=== PATIENT | female | born 1950 | race Caucasian/White ===

== ENCOUNTER → 2017-12-23 | Outpatient (CLI) | payer MEDICARE ==
--- NOTE | 2017-12-23 10:16 | Diagnostic Imaging Report ---
PROCEDURE: CT ABDOMEN AND PELVIS WITHOUT CONTRAST TECHNIQUE: The abdomen and pelvis were scanned utilizing a multidetector helical scanner from the diaphragm to the lesser trochanter without IV or oral contrast material per renal stone protocol. Coronal and sagittal multiplanar reformations were obtained. DLP: 374.95 COMPARISON: None. INDICATIONS: CALCULUS OF THE KIDNEY FINDINGS: ABSENCE OF INTRAVENOUS CONTRAST DECREASES SENSITIVITY FOR DETECTION OF FOCAL LESIONS AND VASCULAR PATHOLOGY. LOWER THORAX: Calcified granuloma in the right lower lobe. HEPATOBILIARY: No focal hepatic lesions. No biliary ductal dilatation. SPLEEN: No splenomegaly. PANCREAS: No focal masses or ductal dilatation. ADRENALS: No adrenal nodules. KIDNEYS/URETERS: No hydronephrosis or solid mass lesions. There is a contour abnormality of the left upper pole posteriorly that likely represents a small cyst. There are at least 8 or 9 stones on the right side with the largest present measuring 7.5 mm within the upper pole. There are no stones on the left side. PELVIC ORGANS/BLADDER: Unremarkable appearing bladder or uterus. Multiple calcified pelvic phleboliths. PERITONEUM / RETROPERITONEUM: No free air or fluid. LYMPH NODES: No lymphadenopathy. VESSELS: Unremarkable. GI TRACT: No distention or wall thickening. There are scattered diverticula present without evidence of diverticulitis. BONES AND SOFT TISSUES: Compression fracture of T12. Fat containing umbilical hernia. IMPRESSION: 1. Right renal lithiasis. 2. Diverticulosis without evidence of diverticulitis. Jt Pollard D.O. Dictated by: Jt Pollard D.O. on 12/23/2017 at 10:20 Electronically approved by: Jt Pollard D.O. on 12/23/2017 at 10:20
== END ==
LOC: EDBD 07:36 → CT 07:36
PROVIDERS: ATTEND Urology
DX: N20.0 Calculus of kidney (principal)
CPT/HCPCS: 74176

== ENCOUNTER → 2018-02-14 | Day surgery (SDC) | payer MEDICARE ==
[2018-02-13 12:35] LABS: BASOPHILS # (AUTO) 0.1 (0.0-0.1); BASOPHILS % 0.7 % (0.0-1.0); HEMATOCRIT 42.1 % (34.2-44.1); HEMOGLOBIN 13.8 g/dL (12.0-16.0); LYMPHOCYTES # (AUTO) 1.8 (1.0-3.2); LYMPHOCYTES % 25.8 % (18.0-39.1); MEAN CORPUSCULAR HEMOGLOBIN 29.1 pg (28-32); MEAN CORPUSCULAR HGB CONC 32.8 g/dL (31-35); MEAN CORPUSCULAR VOLUME 88.8 fL (81-99); MONOCYTES # (AUTO) 0.4 (0.2-0.8); MONOCYTES % 6.3 % (4.4-11.3); NEUTROPHILS # (AUTO) 4.6 (2.1-6.9); NEUTROPHILS % 67.1 % (38.7-80.0); PLATELET COUNT 220 x10e3/uL (140-360); RED BLOOD COUNT 4.74 x10e6/uL (3.6-5.1); RED CELL DISTRIBUTION WIDTH 13.2 % (11.7-14.4)
--- NOTE | 2018-02-13 15:14 | Diagnostic Imaging Report ---
Frontal and lateral views of the chest. HISTORY: Stone, preadmission, lithotripsy COMPARISON: None available. DISCUSSION: Soft tissue attenuation partially limits sensitivity of the exam. Lungs: Low lung volumes result in bibasilar vascular crowding, accentuation of the pulmonary interstitial markings, central pulmonary vasculature, and the cardiac silhouette. Allowing for these limitations, the findings are as follows: No evidence of a consolidative pneumonia or pulmonary alveolar edema. Pleura: No pleural effusion or pneumothorax. Heart and mediastinum: The cardiomediastinal silhouette appears unremarkable. Bones: Focal kyphosis near the thoracal lumbar junction with associated marked anterior wedge compression deformity of a vertebral body. IMPRESSION: 1. Age-indeterminate focal marked anterior wedge compression deformity of a vertebral body near the focal lumbar junction. 2. Otherwise, no acute radiographic abnormality of the chest. Signed by: Dr. Franco Grande D.O., M.M.M. on 02/13/2018 3:11 PM
[~2018-02-14] MED LIST: BIOTIN2500 MCG; CALCIUM; CEFTRIAXONE SOD 1 GM VIAL ONE; DEXAMETHASONE SOD PHOS INJ 4 MG/ML VIAL ONE; FISH OIL/OMEGA 3; GENTAMICIN 80MG/NS 100 ML 100 ML IV ONE; GLUCOSAMINE CH1 EAC5; IOPAMIDOL 200 MG/ML 20 ML VIAL IT ONE; IOPAMIDOL 300MG/ML 50ML INFUS..BTL IV ONE; JUICE PLUS ORCHARD; LIDOCAINE HCL 2% LOCAL INJ 5 ML SDV VIAL INJ ONE; MIDAZOLAM HCL 2 MG/2 ML VIAL ONE; ONDANSETRON HCL INJ 2 MG/ML VIAL ONE; PROPOFOL IV EMULSION 10 MG/ML 20 ML VIAL ONE; SEVOFLURANE INHAL SOLN 250 ML PEN BTL ONE; VITAMIN D3400 UNIT; [UNRECOGNIZED DRUG - OTHER]; [UNRECOGNIZED DRUG - OTHER]
--- NOTE | 2018-02-14 06:41 | Diagnostic Imaging Report ---
ABDOMEN-1VIEW (KUB) Clinical history: Kidney stone on the right side Technique: AP view abdomen Comparison: None Findings: Abdomen: Nonobstructive bowel gas pattern with moderate stool burden. Other: Two stones measuring 8 mm and 4-5 mm overlie the expected right kidney. Question additional punctate right renal stones. Multiple pelvic phleboliths. [place] rightward curvature of the lumbar spine with multilevel degenerative changes. Impression: Right nephrolithiasis. Signed by: Dr Beckie Leija MD on 02/14/2018 6:38 AM
[2018-02-14 09:10] VITALS: BP 123/80
--- OUTSIDE RECORDS SUMMARY | 2018-03-13 06:36 | XMS REPORT ---
Author Author [facility] Address Unknown Phone Unavailable Care Team Providers Care Personal Financial Representative Name Role Phone BOSTON STEARNS Unavailable Unavailable Problems This patient has no known problems. Allergies, Adverse Reactions, Alerts This patient has no known allergies or adverse reactions. Medications This patient has no known medications. Results Test Description Test Time Test Comments Text Results Atomic Results Result Comments ABDOMEN-1VIEW (KUB) 2018-02-14 06:35:00 [place] [address] Patient Name: JEFFRY CARPENTER MR #: [id number] : 1950 Age/Sex: 67/F Req #: [id number] Adm Physician: Ordered by: BOSTON STEARNS MD Report #: [id number] Location: OR Room/Bed: Procedure: [id number] DX/ABDOMEN-1VIEW (KUB) Exam Date: Exam Time: REPORT STATUS: Signed ABDOMEN-1VIEW (KUB) Clinical history: Kidney stone on the right side Technique: AP view abdomen Comparison: None Findings: Abdomen: Nonobstructive bowel gas pattern with moderate stool burden. Other: Two stones measuring 8 mm and 4-5 mm overlie the expected right kidney. Question additional punctate right renal stones. Multiple pelvic phleboliths. [place] rightward curvature of the lumbar spine with multilevel degenerative changes. Impression: Right nephrolithiasis. Signed by: Dr Rivera Leija MD on 02/14/2018 6:38 AM Dictated By: RIVERA LEIJA MD 7 Transcribed By: CRISTIAN on 02/14/18637 COPY TO: BOSTON STEARNS MD CHEST 2 VIEWS 2018-02-13 15:09:00 [place] [address] Patient Name: JEFFRY CARPENTER MR #: [id number] : 1950 Age/Sex: 67/F Req #: [id number] Adm Physician: Ordered by: BOSTON STEARNS MD Report #: [id number] Location: OR Room/Bed: Procedure: [id number] DX/CHEST 2 VIEWS Exam Date: 02/13/18 Exam Time: 1210 REPORT STATUS: Signed Frontal and lateral views of the chest. HISTORY: Stone, preadmission, lithotripsy COMPARISON: None available. DISCUSSION: Soft tissue attenuation partially limits sensitivity of the exam. Lungs: Low lung volumes result in bibasilar vascular crowding, accentuation of the pulmonary interstitial markings, central pulmonary vasculature, and the cardiac silhouette. Allowing for these limitations, the findings are as follows: No evidence of a consolidative pneumonia or pulmonary alveolar edema. Pleura: No pleural effusion or pneumothorax. Heart and mediastinum: The cardiomediastinal silhouette appears unremarkable. Bones: Focal kyphosis near the thoracal lumbar junction with associated marked anterior wedge compression deformity of a vertebral body. IMPRESSION: 1. Age- indeterminate focal marked anterior wedge compression deformity of a vertebral body near the focal lumbar junction. 2. Otherwise, no acute radiographic abnormality of the chest. Signed by: Dr. Gurvinder Grande D.O., M.M.M. on 02/13/2018 3:11 PM Dictated By: GURVINDER GRANDE DO 1511 Transcribed By: CRISTIAN on 02/13/181 COPY TO: BOSTON STEARNS MD CT ABDOMEN/PELVIS WO 2017-12-23 10:20:00 [place] [address] Patient Name: JEFFRY CARPENTER MR #: [id number] : 1950 Age/Sex: 67/F Req #: [id number] Adm Physician: Ordered by: BOSTON STEARNS MD Report #: [id number] Location: CT Room/Bed: Procedure: [id number] CT/CT ABDOMEN/PELVIS WO Exam Date: 12/23/17 Exam Time: 0750 REPORT STATUS: Signed PROCEDURE: CT ABDOMEN AND PELVIS WITHOUT CONTRAST TECHNIQUE: The abdomen and pelvis were scanned utilizing a multidetector helical scanner from the diaphragm to the lesser trochanter without IV or oral contrast material per renal stone protocol. Coronal and sagittal multiplanar reformations were obtained. DLP: 374.95 COMPARISON: None. INDICATIONS: CALCULUS OF THE KIDNEY FINDINGS: ABSENCE OF INTRAVENOUS CONTRAST DECREASES SENSITIVITY FOR DETECTION OF FOCAL LESIONS AND VASCULAR PATHOLOGY. LOWER THORAX: Calcified granuloma in the right lower lobe. HEPATOBILIARY: No focal hepatic lesions. No biliary ductal dilatation. SPLEEN: No splenomegaly. PANCREAS: No focal masses or ductal dilatation. ADRENALS: No adrenal nodules. KIDNEYS/URETERS: No hydronephrosis or solid mass lesions. There is a contour abnormality of the left upper pole posteriorly that likely represents a small cyst. There are at least 8 or 9 stones on the right side with the largest present measuring 7.5 mm within the upper pole. There are no stones on the left side. PELVIC ORGANS/BLADDER: Unremarkable appearing bladder or uterus. Multiple calcified pelvic phleboliths. PERITONEUM / RETROPERITONEUM: No free air or fluid. LYMPH NODES: No lymphadenopathy. VESSELS: Unremarkable. GI TRACT: No distention or wall thickening. There are scattered diverticula present without evidence of diverticulitis. BONES AND SOFT TISSUES: Compression fracture of T12. Fat containing umbilical hernia. IMPRESSION: 1. Right renal lithiasis. 2. Diverticulosis without evidence of diverticulitis. Kemar Pollard D.O. Dictated by: Kemar Pollard D.O. on 12/23/2017 at 10:20 Electronically approved by: Kemar Pollard D.O. on 12/23/2017 at 10:20 Dictated By: KEMAR POLLARD DO 1020 Transcribed By: SEKOU on 12/23/17 1020 COPY TO: BOSTON STEARNS MD
--- NOTE | 2018-04-03 01:21 | Operative Report ---
DATE OF PROCEDURE: February 14, 2018 PREOPERATIVE DIAGNOSES 1. Right nephrolithiasis. 2. Urinary tract infections. 3. Gross hematuria. 4. Mixed-type urinary incontinence. POSTOPERATIVE DIAGNOSES 1. Right nephrolithiasis. 2. Urinary tract infections. 3. Gross hematuria. 4. Mixed-type urinary incontinence. 5. Grade-1 cystocele. 6. Grade-3 rectocele. 7. Atrophic (senile) vaginitis. 8. Urethral hypomobility. OPERATIONS PERFORMED 1. Right-sided extracorporeal shockwave lithotripsy (separate staged procedure performed for the right nephrolithiasis). 2. Cystourethroscopy with bilateral ureteral catheterization and retrograde ureteropyelography (separately procedure performed to evaluate the patient's upper tracts in light of the urinary tract infections and hematuria). 3. Interpretation of retrograde ureteropyelography. 4. Pelvic examination under anesthesia. ANESTHESIA: General. COMPLICATIONS: None. CLINICAL SUMMARY: Nancy Dorado is a 67-year-old woman with the above preoperative diagnoses. She is brought for the above procedures. She is aware of the risks of bleeding, infection, injury to adjacent structures, need for additional procedures, and elected to proceed. The patient has a history of right percutaneous nephrostolithotomy, as well as ESWL procedures, as well as ureteroscopy procedures. OPERATIVE PROCEDURE IN DETAIL: Informed consent was verified. Nancy Dorado was properly identified taken to operating room placed on the lithotripsy table in supine position. Anesthesia was uneventfully begun. The patient's right nephrolithiasis was localized with biplanar fluoroscopy. Total of 3000 shocks were delivered to this 7.5-mm stone burden. We treated the large stone in the mid pole region with 2000 shocks and a small stone in the upper pole we treated with 1000 shocks. Fragmentation was noted. The patient was then carefully and gently re-positioned in the dorsal lithotomy position with all pressure points well padded. Her genitalia were prepared and draped in usual sterile fashion. The 22.5-Cymraes cystoscope sheath with the obturator in place was atraumatically inserted into the patient's bladder and the bladder was drained. Panendoscopy of the urinary bladder revealed no suspicious mucosal lesions, no tumors, no stones, no diverticula. Normally positioned ureteral orifices were identified. Ureteral catheter was used to cannulate each ureter and retrograde ureteropyelography. Interpretation of retrograde ureteropyelography: Contrast was instilled in retrograde fashion bilaterally. The left side was unremarkable. There were no tumors, no stones, no diverticula. Unobstructed drainage was observed. The right hand side exhibited chronic right hydronephrosis without any evidence of obstruction within the ureter. Patient also had a significantly dilated upper pole marcelo. Filling defects were noted in the regions, where we treated with lithotripsy as expected. The patient's bladder was then drained. The cystoscope was withdrawn. Pelvic examination revealed a grade-1 cystocele, grade-3 rectocele. There was atrophic vaginitis and urethral hypermobility. No abnormal palpable pelvic masses could be appreciated. There were no obvious mucosal lesions. The patient was uneventfully reversed from anesthesia and taken to recovery room in stable condition. Explicit postoperative instructions were given. Will follow the patient up in the office and of course on an indefinite basis. Job#: [id number] CQ
== END | disposition home or self-care (01) ==
LOC: OR 05:04
PROVIDERS: ATTEND Urology
DX: N20.0 Calculus of kidney (principal); N39.0 Urinary tract infection, site not specified; N39.46 Mixed incontinence; N81.10 Cystocele, unspecified; N81.6 Rectocele; N95.2 Postmenopausal atrophic vaginitis; N36.41 Hypermobility of urethra; N13.30 Unspecified hydronephrosis; K58.9 Irritable bowel syndrome, unspecified; Z01.810 Encounter for preprocedural cardiovascular examination; Z01.812 Encounter for preprocedural laboratory examination; Z01.818 Encounter for other preprocedural examination; Z88.1 Allergy status to other antibiotic agents; Z88.2 Allergy status to sulfonamides
CPT/HCPCS: 36415; 50590; 71046; 74018; 85025; 93005; J1100; J1580; J2001; J2250; J2405; Q9967; J0696

== ENCOUNTER → 2018-03-24 | Outpatient (CLI) | payer MEDICARE ==
[~2018-03-24] MED LIST changes: -CEFTRIAXONE SOD 1 GM VIAL ONE; -DEXAMETHASONE SOD PHOS INJ 4 MG/ML VIAL ONE; -GENTAMICIN 80MG/NS 100 ML 100 ML IV ONE; -IOPAMIDOL 200 MG/ML 20 ML VIAL IT ONE; -IOPAMIDOL 300MG/ML 50ML INFUS..BTL IV ONE; -LIDOCAINE HCL 2% LOCAL INJ 5 ML SDV VIAL INJ ONE; -MIDAZOLAM HCL 2 MG/2 ML VIAL ONE; -ONDANSETRON HCL INJ 2 MG/ML VIAL ONE; -PROPOFOL IV EMULSION 10 MG/ML 20 ML VIAL ONE; -SEVOFLURANE INHAL SOLN 250 ML PEN BTL ONE
--- NOTE | 2018-03-24 15:44 | Diagnostic Imaging Report ---
Exam: Abdominal film Clinical History: Renal stone Comparison: 02/14/2018 DISCUSSION: Previously described 8 mm and 4-5 mm right renal calculi are less conspicuous on the current study. Unchanged pattern of pelvic phleboliths. No calcifications project over the expected ureteral courses. Regional skeletal structures are intact with degenerative disc changes of the lumbar spine. Transitional lumbosacral anatomy incidentally noted. L1 compression deformity again noted. Bowel gas pattern is nonobstructive. IMPRESSION: Previously described subcentimeter right renal calculi are less conspicuous on the current study. Signed by: Dr. Hermann Payan M.D. on 03/24/2018 3:41 PM
== END ==
LOC: RAD 14:17
PROVIDERS: ATTEND Urology
DX: N20.0 Calculus of kidney (principal)
CPT/HCPCS: 74018

== ENCOUNTER → 2018-07-25 | Outpatient (CLI) | payer MEDICARE ==
--- NOTE | 2018-07-25 11:02 | Diagnostic Imaging Report ---
Exam: Bone mineral density study. History: Osteoporosis, screening, history of fractures Comparison: None available. Discussion: Evaluation of the left hip and lumbar spine was performed. The study is technically adequate. The patient's fracture risk is compared to an age-matched control. The patient denies prior surgery/fracture of the spine, hips or forearm. Left hip femoral neck bone mineral density: 0.7 g/cm2, T-score is -1.5, Z-score is 0.1. Left hip total bone mineral density: 0.8 g/cm2, T-score is -1.6, Z-score is -0.3. Lumbar spine total bone mineral density: 1.1 g/cm2, T-score is 0.5, Z-score is 2.3. Impression: 1. Bone mineralization by WHO Classification is low bone mass/osteopenia, the fracture risk is increased. 2. No FRAX is available given the reported history of prior fracture. Signed by: Dr. Franco Grande D.O., M.M.M. on 07/25/2018 10:59 AM
== END ==
LOC: MAMMO 09:51
PROVIDERS: ATTEND Internal Medicine
DX: Z12.31 Encounter for screening mammogram for malignant neoplasm of breast (principal); M81.0 Age-related osteoporosis without current pathological fracture
CPT/HCPCS: 77067; 77080

== ENCOUNTER → 2018-10-13 | Outpatient (CLI) | payer MEDICARE ==
--- NOTE | 2018-10-13 11:57 | Diagnostic Imaging Report ---
Exam: Abdominal film Clinical History: Renal stones Comparison: KUB 12/25 and 03/24/2018 DISCUSSION: No suspicious calcifications project over the renal shadows or expected ureteral courses. Right renal calculi described on 02/24/2018 are no longer visualized. Multiple round, lucent centered pelvic calcifications are unchanged, compatible with phleboliths. Regional skeletal structures are intact. Transitional lumbosacral anatomy with a right-sided pseudoarthrosis between L5 and S1 and dextroscoliotic curvature of the lumbar spine. L1 compression deformity. No mass effect or organomegaly. Bowel gas pattern is nonobstructive. IMPRESSION: No plain film evidence of urolithiasis. Signed by: Dr. Hermann Payan M.D. on 10/13/2018 11:53 AM
== END ==
LOC: RAD 11:04
PROVIDERS: ATTEND Urology
DX: N20.0 Calculus of kidney (principal)
CPT/HCPCS: 74018

== ENCOUNTER → 2019-04-30 | Outpatient (CLI) | payer MEDICARE ==
--- NOTE | 2019-04-30 14:58 | Diagnostic Imaging Report ---
Exam: KUB - 2 views Indication: Renal calculus Comparison: Multiple prior KUBs, most recently 10/13/2018 Findings: 4 mm linear calculus at the right lower pole area no other radiographically apparent renal calculi. Nonobstructive bowel gas pattern. No free air. Phleboliths in the pelvis. Degenerative changes of the visualized spine. Mild degenerative changes of both hip joints. Partially visualized lung bases are clear. Impression: 4 mm linear calculus at the right lower pole. Signed by: Siena Avina MD on 04/30/2019 2:54 PM
== END ==
LOC: RAD 13:54
PROVIDERS: ATTEND Urology
DX: N20.0 Calculus of kidney (principal)
CPT/HCPCS: 74018